=== PATIENT | female | born 1980 | race Caucasian/White ===

== ENCOUNTER 2022-12-28 13:37 | Emergency (ER) | payer OTHER, SELFPAY ==
[2022-12-28 13:41] VITALS: BP 144/99; PULSE 80; RESP 16; TEMP 36.7; O2SAT 99
[2022-12-28 13:47] VITALS: BP 144/99; PULSE 80; RESP 16; TEMP 36.7; O2SAT 99
--- NOTE | 2022-12-28 13:53 | ED.WOUNDLAC ---
HPI - Wound/Laceration General Chief Complaint: Wound/Laceration Stated Complaint: L 5TH FINGER LACERATION Time Seen by Provider: 12/28/22 13:37 Source: patient Mode of arrival: ambulatory Limitations: no limitations History of Present Illness HPI narrative: 42-year-old female presents to [facility] with complaints of laceration to her left 5th finger since prior to arrival. Patient reports that she was using a serrated bread knife to cut a croissant prior to arrival when she cut her left 5th finger. patient denies uncontrollable bleeding,numbness, tingling or decreased range of motion. Patient reports pain to the area. patient reports that she is unsure of her last tetanus shot -- per state immunization website, last Boostrix was administered in 2019 Onset (ago): minute(s) (30) Location: other ( left 5th finger) Place: home Patient tetanus UTD: No Context: accidental Associated symptoms: pain Related Data Home Medications Medication Instructions Recorded Confirmed levonorgestrel 21 mcg/24 hours (8 1 insert intrauterine ONCE 07/23/21 07/23/21 yrs) 52 mg intrauterine device (Mirena) sertraline 50 mg tablet (Zoloft) 50 mg PO DAILY 07/23/21 07/23/21 valacyclovir 500 mg tablet 500 mg PO DAILY 07/24/21 (Valtrex) Allergies Allergy/AdvReac Type Severity Reaction Status Date / Time Sulfa (Sulfonamide Allergy Unknown Other Verified 12/28/22 13:41 Antibiotics) Review of Systems Constitutional: Constitutional: Denies chills, Denies fatigue, Denies fever(s) and Denies weakness ENT: Denies dizziness, Denies epistaxis and Denies nasal congestion Respiratory: Respiratory: Denies cough, Denies dyspnea and Denies wheezing Gastrointestinal: Gastrointestinal: Denies diarrhea, Denies nausea and Denies vomiting Integumentary/Breasts: Comments: laceration to left 5th finger Neurologic: Denies dizziness, Denies syncope and Denies headache(s) PMFSH Surgical History Surgical History Hx of section Hx of hemorrhoidectomy Family History Family History Mother Hypertension Colon cancer Father Heart problem Grandparent Cerebrovascular accident Social History Social History Smoking status: Never smoker Second hand tobacco smoke exposure: No Alcohol intake: current Substance use: never Living arrangements: with family Comments At time of signature, I agree with nursing past medical, surgical, social and family history. There is no relevant family history pertinent to the presenting complaint. Exam Const: General: healthy appearing and no acute distress Nutritional Appearance: well nourished Orientation/consciousness: patient oriented x3 Limitations: no limitations Neck: Neck: normal visual inspection Resp: Effort & Inspection: normal respiratory effort and not labored Auscultation: clear to auscultation bilaterally, no crackles, no rales and no rhonchi Cardio: Rate: regular rate Rhythm: regular rhythm Heart sounds: no murmurs Skin: General skin exam: normal color Rashes: no rashes Wounds: wounds noted Other: 1 cm superficial laceration noted to palmar aspect of distal phalanx of left 5th finger. very mild bleeding noted. No gaping noted to wound. wound edges are well approximated. Extrem: Other: Laceration noted to left 5th finger; see skin assessment. full range of motion of left fingers noted. Pulses are within normal limits Psych: Affect: normal affect Attitude: cooperative Course Course Level of Care: Express Care Visit Vital Signs Vital signs: Vital Signs Temperature 36.7 C 12/28/22 13:41 Pulse Rate 80 12/28/22 13:41 Respiratory Rate 16 12/28/22 13:41 Blood Pressure 144/99 H 12/28/22 13:41 Pulse Oximetry 99 12/28/22 13:41 Temperature 36.7
== END 2022-12-28 14:08 | disposition home or self-care (01) ==
PROVIDERS: Emergency Provider Nurse Practitioner Family; PCP Family Medicine
DX: S61.217A Laceration without foreign body of left little finger without damage to nail, initial encounter (principal); W26.0XXA Contact with knife, initial encounter
CPT/HCPCS: 12001; 99213; G0463

== ENCOUNTER 2024-12-15 09:13 | Outpatient (CLI) | payer OTHER, SELFPAY ==
--- NOTE | ~2024-12-15 | XR_ITS ---
Right elbow Technique: AP, oblique, and lateral views were obtained. Clinical History: Pain Findings: No acute fracture or dislocation is seen. Osseous alignment is anatomic. Joint spaces are p reserved. There is no displacement of the fat pads, and soft tissues are unremarkable. Impression: Unremarkable radiographs. Reviewed, dictated and finalized at location . Impression: Unremarkable radiographs.
== END 2024-12-15 09:14 | disposition home or self-care (01) ==
LOC: MICIMG 09:15
PROVIDERS: PCP Family Medicine; Visit Provider Family Medicine
DX: M25.521 Pain in right elbow (principal)
CPT/HCPCS: 73080